=== PATIENT | female | born 1980 | race Hispanic/Latino ===

== ENCOUNTER → 2020-04-27 | Outpatient (CLI) | payer BC ==
--- NOTE | 2020-04-27 10:44 | Diagnostic Imaging Report ---
Left knee, 3 views INDICATION: ^LT KNEE CHRONIC KNEE PAIN Comparison: None available. Discussion: Multiple views of the left knee are negative for an acute displaced fracture or dislocation. There is mild narrowing of the joint compartments with tiny articulating osteophytes. Negative for [id number] articulation or periarticular sclerosis. Flabella is noted posteriorly. Small suprapatellar joint effusion is noted. Negative for radiopaque foreign body within the overlying soft tissues. IMPRESSION: 1. Negative for acute displaced fracture or dislocation of the left knee. 2. Mild tricompartmental degenerative changes. 3. Small suprapatellar joint effusion, nonspecific. Signed by: Bran Paris MD on 04/27/2020 10:40 AM
== END ==
LOC: RAD 10:03
PROVIDERS: ATTEND Family Medicine
DX: M25.562 Pain in left knee (principal); G89.29 Other chronic pain

== ENCOUNTER 2021-02-13 16:07 | Emergency (ER) | payer BC, OTHER ==
[~2021-02-13] VITALS: Ht 157.5 cm; Wt 96.6 kg
[2021-02-13] MEDS ORDERED: ACETAMINOPHEN 325 MG TAB PO STA (16:25)
[2021-02-13] MEDS ORDERED: SODIUM CHLORIDE 0.9% 1000ML 1,000 ML IV STA (16:25)
[2021-02-13] MEDS: PIPERACILLIN/TAZOBACTAM 3.375 GM in SODIUM CHLORIDE 0.9% 50ML 50 ML IV SCH ×3 (16:30→17:19)
[2021-02-13 17:15] LABS: BASOPHILS % 0.2 % (0.0-1.0); EOSINOPHILS % 0.4 % (0.0-6.0); HEMATOCRIT 38.1 % (34.2-44.1); LYMPHOCYTES # (AUTO) 1.5 (1.0-3.2); MEAN CORPUSCULAR HEMOGLOBIN 29.2 pg (28-32); MEAN CORPUSCULAR HGB CONC 31.5 g/dL (31-35); MEAN CORPUSCULAR VOLUME 92.7 fL (81-99); MONOCYTES # (AUTO) 0.4 (0.2-0.8); MONOCYTES % 9.2 % (4.4-11.3); NEUTROPHILS # (AUTO) 2.7 (2.1-6.9); NEUTROPHILS % 57.8 % (38.7-80.0); PLATELET COUNT 214 x10e3/uL (140-360); RED BLOOD COUNT 4.11 x10e6/uL (3.6-5.1); RED CELL DISTRIBUTION WIDTH 14.3 % (11.7-14.4)
[2021-02-13 17:18] LABS: CLARITY,URINE SL CLOUDY (CLEAR); COLOR,URINE YELLOW (YELLOW); KETONES,URINE NEGATIVE (NEGATIVE); LEUKOCYTE ESTERASE ,URINE NEGATIVE (NEGATIVE); NITRITE,URINE NEGATIVE (NEGATIVE); PROTEIN,URINE DIPSTICK NEGATIVE (NEGATIVE); URINE UROBILINOGEN 0.2 mg/dL (0.2 - 1)
[2021-02-13 17:30] LABS: BACTERIA,URINE MODERATE /HPF; EPITHELIAL CELLS,URINE MODERATE /LPF; RBC,URINE 0-5 /HPF (0-5)
[2021-02-13 17:36] LABS: ALBUMIN 3.9 g/dL (3.5-5.0); ANION GAP 13.7 mmol/L (8-16); CREATININE, SERUM 0.71 mg/dL (0.57-1.11); POTASSIUM 3.7 mmol/L (3.5-5.1)
[2021-02-13] MEDS ORDERED: CASIRIVIMAB/IMDEVIMAB 10 ML in SODIUM CHLORIDE 0.9% 100 ML IV ONE (20:00)
[2021-02-13] MEDS ORDERED: SODIUM CHLORIDE 0.9% 100 ML ONE (20:09)
[2021-02-13 20:59] VITALS: BP 122/76
== END 2021-02-13 21:30 | disposition home or self-care (01) ==
LOC: ER 16:23
DX: R50.9 Fever, unspecified (principal); R05 Cough; U07.1 COVID-19; R11.2 Nausea with vomiting, unspecified
CPT/HCPCS: 36415; 71045; 80053; 81001; 81025; 85025; 99283; J2543; J7030; J7050; U0002